=== PATIENT | male | born 1985 | race African-American/Black ===

== ENCOUNTER → 2021-04-02 | Outpatient (CLI) | payer OTHER ==
--- NOTE | 2021-04-02 21:50 | RAD ---
Study: XR FINGER(S)_RIGHT 2+VIEWS Indication: Crush injury. Comparison: None. Findings: Soft tissue prominence mainly at the volar aspect of the distal ring finger. On the lateral view trac e irregularity along the dorsum of the tuft but not definitively acute. No displaced fracture seen th roughout the hand or traumatic malalignment. Maintained joint spaces. Chronic fifth metacarpal deform ity. No retained radiopaque foreign body. Impression: No displaced fracture or traumatic malalignment. Soft tissue injury at the distal aspect of the ring finger. Electronically signed by: KENDRICK RODNEY MD (04/02/2021 9:48 PM) [id number]
== END ==
LOC: RAD 20:21
PROVIDERS: ATTEND Nurse Practitioner Family
DX: S69.91XA Unspecified injury of right wrist, hand and finger(s), initial encounter (principal); X58.XXXA Exposure to other specified factors, initial encounter; Y93.89 Activity, other specified; Y92.89 Other specified places as the place of occurrence of the external cause; Y99.8 Other external cause status
CPT/HCPCS: 73140